=== PATIENT | male | born 1950 ===

== ENCOUNTER 2017-06-18 10:59 | Outpatient (CLI) | payer OTHER ==
[~2017-06-18] VITALS: Ht 152.4 cm; Wt 111.1 kg
== END 2017-06-18 11:15 | disposition home or self-care (01) ==
LOC: OFIC 805 10:59
DX: G47.39 Other sleep apnea (principal)

== ENCOUNTER 2018-05-23 10:06 | Outpatient (CLI) | payer OTHER ==
[~2018-05-23] VITALS: Ht 152.4 cm; Wt 111.1 kg
== END 2018-05-23 10:20 | disposition home or self-care (01) ==
LOC: OFIC 805 10:06
DX: J30.89 Other allergic rhinitis (principal); G47.39 Other sleep apnea

== ENCOUNTER 2018-12-12 11:23 | Outpatient (CLI) | payer OTHER ==
[~2018-12-12] VITALS: Ht 152.4 cm; Wt 111.1 kg
== END 2018-12-12 18:26 | disposition home or self-care (01) ==
LOC: OFIC 805 11:23
DX: J30.89 Other allergic rhinitis (principal); G47.39 Other sleep apnea; H61.23 Impacted cerumen, bilateral